=== PATIENT | male | born 1975 | race Caucasian/White ===

== ENCOUNTER 2021-07-11 19:45 | Emergency (ER) | payer SELFPAY ==
[2021-07-11 21:37] LABS: RED BLOOD COUNT 5.85 M/UL (4.20-5.50); WHITE BLOOD COUNT 11.2 K/UL (4.5-11.0)
[2021-07-11 22:09] LABS: BUN/CREATININE RATIO 14 (0-10)
[2021-07-11] MEDS ORDERED: GLUCOPHAGE 500500 MG GT (23:19)
== END 2021-07-11 23:25 | disposition home or self-care (01) ==
LOC: ER1 19:45
PROVIDERS: Student in an Organized Health Care Education/Training Program
DX: R22.42 Localized swelling, mass and lump, left lower limb (principal); E11.9 Type 2 diabetes mellitus without complications
CPT/HCPCS: 80053; 85025; 85379; 85610; 85730; 99283